=== PATIENT | female | born 1995 | race African-American/Black ===

== ENCOUNTER 2019-05-25 00:33 | Emergency (ER) | payer OTHER ==
[~2019-05-25] VITALS: Ht 154.9 cm; Wt 81.0 kg
[2019-05-25] MEDS ORDERED: KETOROLAC 15MG/ML VIAL IM ONE (02:45)
[2019-05-25 05:58] VITALS: BP 121/87
== END 2019-05-25 06:04 | disposition home or self-care (01) ==
LOC: ER 00:33
DX: S16.1XXA Strain of muscle, fascia and tendon at neck level, initial encounter (principal); M25.511 Pain in right shoulder; M79.641 Pain in right hand; F12.10 Cannabis abuse, uncomplicated; V49.49XA Driver injured in collision with other motor vehicles in traffic accident, initial encounter; Y93.89 Activity, other specified; Y92.89 Other specified places as the place of occurrence of the external cause; Y99.8 Other external cause status
CPT/HCPCS: 72125; 73030; 73110; 96372; 99284; J1885; A4565